=== PATIENT | female | born 1975 | race African-American/Black ===

== ENCOUNTER 2016-09-20 08:47 | Emergency (ER) | payer MEDICAID ==
[~2016-09-20] VITALS: Ht 172.7 cm; Wt 121.0 kg
[2016-09-20 08:50] VITALS: BP 138/100
[2016-09-20] MEDS ORDERED: CARV6.2512 PO (09:28)
[2016-09-20] MEDS ORDERED: LISI-167 PO (09:28)
[2016-09-20] MEDS ORDERED: FURO40TA6 PO (09:28)
[2016-09-20] MEDS ORDERED: HYDR-3307 PO (09:28)
[2016-09-20] MEDS ORDERED: ATOR40TA78 PO (09:28)
[2016-09-20] MEDS ORDERED: DIPH25CA61 PO (09:28)
[2016-09-20] MEDS ORDERED: SULF1TAB3 PO (09:29)
[2016-09-20] MEDS ORDERED: METHYLNALTREXONE 12 MG/0.6 ML SQ ONE (10:30)
[2016-09-20] MEDS ORDERED: DIAZEPAM 5 MG/ML, 2ML ONE (11:27)
[2016-09-20] MEDS ORDERED: DIAZEPAM 5 MG/ML, 10ML VIAL IM ONE (11:30)
== END 2016-09-20 12:56 | disposition home or self-care (01) ==
LOC: ED 10:29
DX: K59.00 Constipation, unspecified (principal); I10 Essential (primary) hypertension; I50.9 Heart failure, unspecified; Z87.891 Personal history of nicotine dependence; Z86.73 Personal history of transient ischemic attack (TIA), and cerebral infarction without residual deficits
CPT/HCPCS: 74020; 96372; 99284; J3360